=== PATIENT | male | born 1995 | race Caucasian/White ===

== ENCOUNTER 2019-12-20 03:22 | Emergency (ER) | payer OTHER ==
[~2019-12-20] VITALS: Ht 180.3 cm; Wt 74.8 kg
[2019-12-20 03:24] VITALS: Ht 180.3 cm; Wt 74.8 kg
[2019-12-20 03:54] VITALS: BP 117/80
== END 2019-12-20 03:54 | disposition home or self-care (01) ==
LOC: ED 03:22
DX: R11.10 Vomiting, unspecified (principal); R19.7 Diarrhea, unspecified; Z98.890 Other specified postprocedural states

== ENCOUNTER 2020-02-04 21:51 | Emergency (ER) | payer OTHER ==
[~2020-02-04] VITALS: Ht 182.9 cm; Wt 77.7 kg
[2020-02-05 00:03] VITALS: BP 132/76
== END 2020-02-05 00:03 | disposition home or self-care (01) ==
LOC: ED 21:51
DX: S46.911A Strain of unspecified muscle, fascia and tendon at shoulder and upper arm level, right arm, initial encounter (principal); X58.XXXA Exposure to other specified factors, initial encounter; Y93.89 Activity, other specified; Y92.89 Other specified places as the place of occurrence of the external cause; Y99.8 Other external cause status
CPT/HCPCS: J1885; Q0092